=== PATIENT | male | born 1985 | race Caucasian/White ===

== ENCOUNTER 2019-10-03 06:48 | Emergency (ER) | payer BC ==
[2019-10-03] MEDS ORDERED: methylPREDNISolone Sodium Succinate 125 MG/2 ML SDV IM ONE (07:22)
--- NOTE | 2019-10-03 07:26 | EDM.PDOC ---
ED HPI GENERAL MEDICAL PROBLEM - General Chief Complaint: ENT Problem Stated Complaint: something in the back of the throat Time Seen by Provider: 10/03/19 07:20 Source of Information: Reports: Patient, Family History Limitations: Reports: No Limitations - History of Present Illness INITIAL COMMENTS - FREE TEXT/NARRATIVE: 34-year-old male woke up this morning with difficulty swallowing and a sensation of swelling in the back of his throat. No fevers or chills. He has been struggling with a cold for the past 7 to 10 days. No current cough or shortness of breath. No nausea or vomiting. Onset: Gradual Duration: Hour(s): (Over the last 12 hours) Location: Reports: Other (Throat) Associated Symptoms: Reports: Other (Difficulty swallowing and talking). Denies : Fever/Chills, Headaches, Shortness of Breath - Related Data Allergies Allergy/AdvReac Type Severity Reaction Status Date / Time No Known Allergies Allergy Verified 10/03/19 07:16 Home Meds: Home Meds NK [No Known Home Meds] 10/13/14 [History] Past Medical History - Past Health History Medical/Surgical History: Denies Medical/Surgical History Social & Family History - Tobacco Use Smoking Status *Q: Never Smoker - Caffeine Use Caffeine Use: Reports: Coffee, Soda, Tea - Recreational Drug Use Recreational Drug Use: No ED ROS ENT - Review of Systems Review Of Systems: See Below Constitutional: Denies: Fever, Chills HEENT: Reports: Rhinitis, Throat Pain, Throat Swelling, Other (Recently had laryngitis which has improved) Respiratory: Denies: Shortness of Breath GI/Abdominal: Reports: No Symptoms ED EXAM, ENT - Physical Exam Exam: See Below Exam Limited By: No Limitations General Appearance: Alert, No Apparent Distress (Looks uncomfortable but not distressed) Eye Exam: Bilateral Eye: Normal Inspection Mouth/Throat: Tonsillar Erythema, Uvular Edema. No: Tonsillar Swelling Head: Atraumatic Neck: Non-Tender Respiratory/Chest: Lungs Clear Course - Vital Signs Last Recorded V/S: Last Vital Signs Temp 97.3 F 10/03/19 07:12 Pulse 80 10/03/19 07:12 Resp 16 10/03/19 07:12 BP 147/77 H 10/03/19 07:12 Pulse Ox 96 10/03/19 07:12 - Orders/Labs/Meds Orders: Active Orders 24 hr Category Date Time Status CULTURE STREP A CONFIRMATION [RM] Routine Lab 10/03/19 07:26 Results STREP SCRN A RAPID W CULT CONF [RM] Routine Lab 10/03/19 07:26 Results Meds: Medications Discontinued Medications Generic Name Dose Route Start Last Admin Trade Name Veronica PRN Reason Stop Dose Admin Methylprednisolone Sodium Succinate 125 mg 10/03/19 07:22 12 07:49 Solu-Medrol IM 10/03/19 07:23 125 mg ONETIME ONE Administration - Re-Assessments/Exams Free Text/Narrative Re-Assessment/Exam: 10/03/19 07:25 Rapid strep was obtained. This patient appears to have isolated uvular edema likely from his ongoing viral upper respiratory infection. He was given 125 mg of Solu-Medrol and some ice chips to suck on. 10/03/19 07:53 Rapid strep was negative. Patient will be covered with a 5-day course of Zithromax to cover atypicals, and was advised to continue with cold foods and decrease talking for the next 24 to 48 hours. He can return anytime if worsening. Departure - Departure Time of Disposition: 08:02 Disposition: Home, Self-Care 01 Clinical Impression: Swollen uvula Pharyngitis Qualifiers: Pharyngitis/tonsillitis etiology: unspecified etiology Qualified Code(s): J02.9 - Acute pharyngitis, unspecified - Discharge Information Instructions: Pharyngitis, [id number] Referrals: PCP,None [Primary Care Provider] - Forms: ED Department Discharge Care Plan Goals: Take antibiotic as prescribed, continue with cold foods, and decrease talking for the next 24 to 48 hours. Return anytime if worsening such as difficulty breathing. - My Orders Last 24 Hours: My Active Orders 10/03/19 07:26 CULTURE STREP A CONFIRMATION [RM] Routine STREP SCRN A RAPID W CULT CONF [RM] Routine - Assessment/Plan Last 24 Hours: My Active Orders 10/03/19 07:26 CULTURE STREP A CONFIRMATION [RM] Routine STREP SCRN A RAPID W CULT CONF [RM] Routine
== END 2019-10-03 08:02 | disposition home or self-care (01) ==
LOC: JP.ED 06:48
DX: J02.9 Acute pharyngitis, unspecified (principal)
CPT/HCPCS: 87081; 87880; 96372; 99284; J2930

== ENCOUNTER 2020-11-18 05:57 | Emergency (ER) | payer BC ==
[2020-11-18] MEDS ORDERED: methylPREDNISolone Sodium Succinate 125 MG/2 ML SDV IM ONE (06:33)
--- NOTE | 2020-11-18 06:39 | EDM.PDOC ---
ED HPI GENERAL MEDICAL PROBLEM - General Chief Complaint: ENT Problem Stated Complaint: SWOLLEN MOUTH Time Seen by Provider: 11/18/20 06:20 Source of Information: Reports: Patient History Limitations: Reports: No Limitations - History of Present Illness INITIAL COMMENTS - FREE TEXT/NARRATIVE: 35-year-old male woke up this morning with a swollen uvula, uncomfortable sensation in the back of his throat. This happened a year ago after having cold symptoms for 7 days, this time he feels fine. No other symptoms Onset: Unknown/Unsure (Woke up with swollen uvula, unsure when it started) - Related Data Allergies Allergy/AdvReac Type Severity Reaction Status Date / Time No Known Allergies Allergy Verified 11/18/20 06:14 Home Meds: Home Meds NK [No Known Home Meds] 10/13/14 [History] Past Medical History - Past Health History Medical/Surgical History: Denies Medical/Surgical History - Infectious Disease History Infectious Disease History: Reports: Chicken Pox Social & Family History - Tobacco Use Tobacco Use Status *Q: Never Tobacco User - Caffeine Use Caffeine Use: Reports: Coffee, Soda, Tea - Recreational Drug Use Recreational Drug Use: No ED ROS ENT - Review of Systems Review Of Systems: See Below Constitutional: Denies: Fever, Chills, Malaise HEENT: Denies: Throat Pain Respiratory: Denies: Shortness of Breath Cardiovascular: Denies: Chest Pain GI/Abdominal: Denies: Nausea, Vomiting Skin: Reports: No Symptoms Neurological: Denies: Headache ED EXAM, ENT - Physical Exam Exam: See Below Exam Limited By: No Limitations General Appearance: Alert, No Apparent Distress Mouth/Throat: Uvular Edema. No: Pharyngeal Erythema, Tonsillar Erythema Head: Atraumatic Neck: No: Lymphadenopathy (R), Lymphadenopathy (L) Respiratory/Chest: No Respiratory Distress Course - Vital Signs Last Recorded V/S: Last Vital Signs Temp 96.4 F L 11/18/20 06:16 Pulse 98 11/18/20 06:16 Resp 16 11/18/20 06:16 BP 126/81 11/18/20 06:16 Pulse Ox 96 11/18/20 06:16 - Orders/Labs/Meds Meds: Medications Discontinued Medications Generic Name Dose Route Start Last Admin Trade Name Freq PRN Reason Stop Dose Admin Methylprednisolone Sodium Succinate 125 mg 11/18/20 06:33 11/18/20 06:43 Solu-Medrol IM 11/18/20 06:34 125 mg ONETIME ONE Administration - Re-Assessments/Exams Free Text/Narrative Re-Assessment/Exam: 11/18/20 06:37 Patient was given 125 mg of IM Solu-Medrol which he had last time and it seemed very effective. Encouraged him to gargle with icy water, and he can return if worsening. Departure - Departure Time of Disposition: 06:55 Disposition: Home, Self-Care 01 Clinical Impression: Swollen uvula - Discharge Information Instructions: Uvulitis Referrals: PCP,None [Primary Care Provider] - Forms: ED Department Discharge Care Plan Goals: Cold icy liquids and decreased talking for the morning may be helpful. This should improve as the day goes on fairly rapidly, recheck at any time if worsening especially if you develop a fever or difficulty breathing. Sepsis Event Note (ED) - Evaluation Sepsis Screening Result: No Definite Risk - Focused Exam Vital Signs: Vital Signs Temp Pulse Resp BP Pulse Ox 11/18/20 06:16 96.4 F L 98 16 126/81 96
== END 2020-11-18 06:57 | disposition home or self-care (01) ==
LOC: JP.ED 05:57
DX: K13.79 Other lesions of oral mucosa (principal)
CPT/HCPCS: 96372; 99283; J2930

== ENCOUNTER 2021-03-26 04:20 | Emergency (ER) | payer BC ==
--- NOTE | 2021-03-26 04:47 | EDM.PDOC ---
ED HPI GENERAL MEDICAL PROBLEM - General Chief Complaint: ENT Problem Stated Complaint: MEDICAL Time Seen by Provider: 03/26/21 04:44 Source of Information: Reports: Patient History Limitations: Reports: No Limitations - History of Present Illness INITIAL COMMENTS - FREE TEXT/NARRATIVE: Patient presents after he woke up feeling like his uvula is swollen "the ball in back of my through". He has had this in the past on at least 2-3 occasions and last time was treated here with steroids approximate 4 months ago for similar symptomatology, with resolution. Patient does report he snores. He denies any runny nose, cough, shortness of breath, change in taste or smell, sore throat. No Covid exposures. No diarrhea. He is not vaccinated. He denies problems swallowing. He does report a history of GERD. Per patient denies any chest pain, neck pain, jaw pain, skin rash or other complaints. Presents with his and 2 children. 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 Patient denies any lip swelling he is not on CHRIS inhibitor's. Onset: Today - Related Data Allergies Allergy/AdvReac Type Severity Reaction Status Date / Time No Known Allergies Allergy Verified 03/26/21 04:29 Home Meds: Home Meds NK [No Known Home Meds] 10/13/14 [History] Past Medical History - Past Health History Medical/Surgical History: Denies Medical/Surgical History - Infectious Disease History Infectious Disease History: Reports: Chicken Pox Social & Family History - Tobacco Use Tobacco Use Status *Q: Never Tobacco User Second Hand Smoke Exposure: No - Caffeine Use Caffeine Use: Reports: Soda - Recreational Drug Use Recreational Drug Use: No ED ROS ENT - Review of Systems Review Of Systems: Comprehensive ROS is negative, except as noted in HPI. Constitutional: Reports: No Symptoms HEENT: Reports: Throat Swelling. Denies: Dental Pain, Ear Pain, Eye Discharge, Nose Pain, Rhinitis, Sinus Problem, Throat Pain Respiratory: Reports: No Symptoms Cardiovascular: Reports: No Symptoms Endocrine: Reports: No Symptoms GI/Abdominal: Reports: No Symptoms : Reports: No Symptoms Musculoskeletal: Reports: No Symptoms Skin: Reports: No Symptoms Neurological: Reports: No Symptoms Psychiatric: Reports: No Symptoms Hematologic/Lymphatic: Reports: No Symptoms Immunologic: Reports: No Symptoms ED EXAM, ENT - Physical Exam Exam: See Below Exam Limited By: No Limitations General Appearance: Alert, No Apparent Distress Ears: Normal External Exam Nose: Normal Inspection. No: Clear Rhinorrhea Mouth/Throat: Normal Gums, Normal Lips, Normal Teeth, Uvular Edema. No: Drooling, Dry Mucous Membrane, Hoarse Voice, Lip Swelling, Muffled Voice, Oral Ulcers, Peritonsillar Mass, Pharyngeal Erythema, Tongue Swelling, Tonsillar Erythema, Tonsillar Exudates, Tonsillar Swelling, Trismus, Uvular Deviation Neck: Normal Inspection, Supple, Full Range of Motion. No: Lymphadenopathy (R), Lymphadenopathy (L) Respiratory/Chest: No Respiratory Distress Cardiovascular: Normal Peripheral Pulses, Regular Rate, Rhythm GI/Abdominal: No Distention Extremities: Normal Inspection Neurological: Alert, Oriented, Normal Cognition, Normal Gait, No Motor/Sensory Deficits Psychiatric: Normal Affect Skin: Warm, No Rash Lymphatic: No Adenopathy Course - Vital Signs Text/Narrative:: Patient presents with isolated uvula swelling very tip of his uvula. He has no infectious symptomatology. he has been treated in the past with steroids for similar presentation. Most likely cause of this is is his nocturnal snoring. I discussed sleep study as an outpatient. Also consider possible GERD and/or infectious etiology. Patient would like discharge home and is stable. We will treat him with a dose of oral Decadron in the ED (8mg) and place him on Zantac 150 mg p.o. daily. Recommend follow up in the next 7 to 10 days for repeat assessment wit PMD. Discussed with the patient the potential causes of edema tous uvula. Patient has no signs of angioedema, or any life-threatening process. Patient is talkative with normal voice, polite and conversant. He does note after he drank water prior to my exam the uvula swelling decreased. He has mild swelling at the tip of his uvula uvula, which is midline. there is no trismus the remaining oral pharyngeal examination is normal. Last Recorded V/S: Last Vital Signs Temp 36.4 C 03/26/21 04:30 Pulse 88 03/26/21 04:30 Resp 16 03/26/21 04:30 BP 126/79 03/26/21 04:30 Pulse Ox 96 03/26/21 04:30 - Orders/Labs/Meds Meds: Medications Discontinued Medications Generic Name Dose Route Start Last Admin Trade Name Freq PRN Reason Stop Dose Admin Dexamethasone 8 mg 03/26/21 04:54 03/26/21 05:02 Dexamethasone 4 Mg/Ml Sdv PO 03/26/21 04:55 8 mg ONETIME ONE Administration Departure - Departure Time of Disposition: 05:12 (stable) Disposition: Home, Self-Care 01 Condition: Good Clinical Impression: Uvular swelling, Swollen uvula - Discharge Information *PRESCRIPTION DRUG MONITORING PROGRAM REVIEWED*: No *COPY OF PRESCRIPTION DRUG MONITORING REPORT IN PATIENT LUCI: No Instructions: Uvulitis Referrals: PCP,None [Primary Care Provider] - Forms: ED Department Discharge Additional Instructions: Please return if temperature greater 100.4, progressive swelling of your uvula, lip swelling, voice change, neck swelling. Consider sleep study as you note this happens when you snore. Your treated today with a dose of possible anti- inflammatory steroid to help with swelling and/or allergic reactions. I do not see evidence to suggest that you have a serious bacterial infection today. Reflux can also cause swelling of her uvula. Please start using zantac 150 mg p.o. daily. follow up with your MD to recheck in 7-10 days. Sepsis Event Note (ED) - Evaluation Sepsis Screening Result: No Definite Risk - Focused Exam Vital Signs: Vital Signs Temp Pulse Resp BP Pulse Ox 03/26/21 04:30 36.4 C 88 16 126/79 96
[2021-03-26] MEDS ORDERED: Dexamethasone 4 MG/ML SDV PO ONE (04:54)
== END 2021-03-26 05:13 | disposition home or self-care (01) ==
LOC: JP.ED 04:20
DX: R22.0 Localized swelling, mass and lump, head (principal)
CPT/HCPCS: 99283; J1100

== ENCOUNTER 2021-06-21 06:14 | Emergency (ER) | payer BC ==
[2021-06-21] MEDS ORDERED: Dexamethasone 4 MG/ML SDV PO ONE (06:38)
--- NOTE | 2021-06-21 06:43 | EDM.PDOC ---
ED HPI GENERAL MEDICAL PROBLEM - General Chief Complaint: ENT Problem Stated Complaint: SWOLLEN UVULA Time Seen by Provider: 06/21/21 06:30 Source of Information: Reports: Patient History Limitations: Reports: No Limitations - History of Present Illness INITIAL COMMENTS - FREE TEXT/NARRATIVE: 35-year-old male that comes in a couple of times a year over the past couple years with an isolated swollen uvula in the morning. He woke up again this morning unable to talk or swallow very well, he was worried that it was going to get worse so came in but it is already getting better. No shortness of breath, no systemic symptoms, no fever or chills, no nausea or vomiting. He has responded well to steroids in the past. It was recommended that he go talk to her primary provider about sleep study but he does not want to because he does not want to "sleep with a machine". Onset: Other (Symptoms started sometime in the night) Location: Reports: Other (Symptoms are isolated to the uvula) Associated Symptoms: Reports: No Other Symptoms - Related Data Allergies Allergy/AdvReac Type Severity Reaction Status Date / Time No Known Allergies Allergy Verified 06/21/21 06:29 Home Meds: Home Meds NK [No Known Home Meds] 10/13/14 [History] Past Medical History - Past Health History Medical/Surgical History: Denies Medical/Surgical History - Infectious Disease History Infectious Disease History: Reports: Chicken Pox Social & Family History - Tobacco Use Tobacco Use Status *Q: Never Tobacco User - Caffeine Use Caffeine Use: Reports: Coffee - Recreational Drug Use Recreational Drug Use: No ED ROS ENT - Review of Systems Review Of Systems: See Below Constitutional: Denies: Fever, Chills HEENT: Reports: Other (As in HPI) Respiratory: Reports: No Symptoms GI/Abdominal: Reports: No Symptoms Musculoskeletal: Reports: No Symptoms Skin: Reports: No Symptoms Neurological: Reports: No Symptoms Psychiatric: Reports: No Symptoms ED EXAM, ENT - Physical Exam Exam: See Below Exam Limited By: No Limitations General Appearance: Alert, No Apparent Distress Eye Exam: Bilateral Eye: Normal Inspection Mouth/Throat: Uvular Edema (Entire uvula is edematous but it is isolated) Head: Atraumatic Neck: No: Lymphadenopathy (R), Lymphadenopathy (L) Respiratory/Chest: No Respiratory Distress, Lungs Clear Cardiovascular: Regular Rate, Rhythm Neurological: Alert, Oriented Psychiatric: Normal Affect, Normal Mood Skin: Warm, Dry Course - Vital Signs Last Recorded V/S: Last Vital Signs Temp 97.5 F 06/21/21 06:29 Pulse 101 H 06/21/21 06:29 Resp 16 06/21/21 06:29 BP 132/78 06/21/21 06:29 Pulse Ox 96 06/21/21 06:29 - Orders/Labs/Meds Meds: Medications Discontinued Medications Generic Name Dose Route Start Last Admin Trade Name Veronica PRN Reason Stop Dose Admin Dexamethasone 8 mg 06/21/21 06:38 06/21/21 06:43 Dexamethasone 4 Mg/Ml Sdv PO 06/21/21 06:39 8 mg ONETIME ONE Administration - Re-Assessments/Exams Free Text/Narrative Re-Assessment/Exam: 06/21/21 06:41 Patient again was given 8 mg of oral Decadron. Encourage sucking on ice or sipping cold juice for the next hour and this should resolve. He can return if worsening. Departure - Departure Time of Disposition: 06:50 Disposition: Home, Self-Care 01 Clinical Impression: Uvular swelling - Discharge Information Instructions: Uvulitis Referrals: PCP,None [Primary Care Provider] - Forms: ED Department Discharge Care Plan Goals: Consider seeing a primary provider to discuss a sleep study or a steroid refill for any occurrence of the symptoms in the future. Return if worsening. Sepsis Event Note (ED) - Evaluation Sepsis Screening Result: No Definite Risk - Focused Exam Vital Signs: Vital Signs Temp Pulse Resp BP Pulse Ox 06/21/21 06:29 97.5 F 101 H 16 132/78 96 06/21/21 06:28 97.5 F 101 H 16 132/78 96
== END 2021-06-21 06:50 | disposition home or self-care (01) ==
LOC: JP.ED 06:14
DX: K13.79 Other lesions of oral mucosa (principal)
CPT/HCPCS: 99283; J1100

== ENCOUNTER 2021-06-26 01:52 | Emergency (ER) | payer BC ==
--- NOTE | 2021-06-26 02:42 | EDM.PDOC ---
ED HPI GENERAL MEDICAL PROBLEM - General Chief Complaint: Lower Extremity Injury/Pain Stated Complaint: INJURED LEFT HEEL Time Seen by Provider: 06/26/21 02:25 Source of Information: Reports: Patient, Old Records, RN History Limitations: Reports: No Limitations - History of Present Illness INITIAL COMMENTS - FREE TEXT/NARRATIVE: 35 yo male presents with L medial heel pain that has been getting worse for the past couple of days. He has been walking in it funny so now his calf is also tight. He was was taking Aleve with partial relief, but didn't take any last night and now it is worse. Denies any injury to the area. Has not been seen before [facility] for this. Onset: Gradual Duration: Day(s):, Getting Worse Location: Reports: Lower Extremity, Left Quality: Reports: Sharp (with weight bearing) Severity: Severe (with weight bearing) Improves with: Reports: Medication, Rest Worsens with: Reports: Movement (weight bearing) Context: Reports: Other (see HPI) Associated Symptoms: Reports: No Other Symptoms Treatments [employer] F[employer]ER: Reports: Other (see below) (none) heel Pain Score (Numeric/FACES): 1 - Related Data Allergies Allergy/AdvReac Type Severity Reaction Status Date / Time No Known Allergies Allergy Verified 06/21/21 06:29 Home Meds: Home Meds NK [No Known Home Meds] 10/13/14 [History] Past Medical History - Past Health History Medical/Surgical History: Denies Medical/Surgical History Respiratory History: Reports: None Gastrointestinal History: Reports: None Genitourinary History: Reports: None Musculoskeletal History: Reports: None Neurological History: Reports: None Psychiatric History: Reports: None Endocrine/Metabolic History: Reports: None Hematologic History: Reports: None Immunologic History: Reports: None Oncologic (Cancer) History: Reports: None Dermatologic History: Reports: None - Infectious Disease History Infectious Disease History: Reports: Chicken Pox - Past Surgical History Head Surgeries/Procedures: Reports: None Social & Family History - Family History Family Medical History: No Pertinent Family History - Tobacco Use Tobacco Use Status *Q: Never Tobacco User - Caffeine Use Caffeine Use: Reports: Soda - Recreational Drug Use Recreational Drug Use: No Review of Systems - Review of Systems Review Of Systems: See Below Constitutional: Reports: No Symptoms Musculoskeletal: Reports: Foot Pain (L medial heel) Skin: Reports: No Symptoms Neurological: Reports: No Symptoms ED EXAM, GENERAL - Physical Exam Exam: See Below Exam Limited By: No Limitations General Appearance: Alert, WD/WN, No Apparent Distress Extremities: Normal Inspection, Normal Range of Motion, No Pedal Edema, Other (tender to the L heel, medial aspect. ). No: Non-Tender, Pedal Edema, Limited Range of Motion, Increased Warmth, Redness Neurological: Alert, Oriented, CN II-XII Intact, Normal Cognition, No Motor/Sensory Deficits Psychiatric: Normal Affect, Normal Mood Skin Exam: Warm, Dry, Intact, Normal Color, No Rash. No: Ecchymosis, Erythema, Increased Warmth, Petechiae, Rash, Wound/Incision Course - Vital Signs Last Recorded V/S: Last Vital Signs Temp 36.6 C 06/26/21 02:03 Pulse 80 06/26/21 02:03 Resp 16 06/26/21 02:03 BP 141/84 H 06/26/21 02:03 Pulse Ox 99 06/26/21 02:03 Departure - Departure Time of Disposition: 02:45 Disposition: Home, Self-Care 01 Condition: Good Clinical Impression: Pain of left heel - Discharge Information *PRESCRIPTION DRUG MONITORING PROGRAM REVIEWED*: Not Applicable *COPY OF PRESCRIPTION DRUG MONITORING REPORT IN PATIENT LUCI: Not Applicable Instructions: Crutch Use, Adult, [id number] Referrals: PCP,None [Primary Care Provider] - Additional Instructions: Take 2 Aleve every 12 hrs with food. Add acetaminophen up to 1000 mg every 6 hrs for added relief. Crutch walking and no weight bearing. Follow up with podiatry, someone will call you with an appt. Sepsis Event Note (ED) - Evaluation Sepsis Screening Result: No Definite Risk - Focused Exam Vital Signs: Vital Signs Temp Pulse Resp BP Pulse Ox 06/26/21 02:03 36.6 C 80 16 141/84 H 99
== END 2021-06-26 02:55 | disposition home or self-care (01) ==
LOC: JP.ED 01:52
DX: M79.672 Pain in left foot (principal)
CPT/HCPCS: 99283

== ENCOUNTER 2021-08-09 20:27 | Emergency (ER) | payer BC ==
[2021-08-09] MEDS ORDERED: Ketorolac 30 MG/ML SDV IM ONE (22:56)
[2021-08-09] MEDS ORDERED: Methocarbamol 500 MG Tab PO ONE (22:56)
--- NOTE | 2021-08-09 23:58 | EDM.PDOC ---
ED HPI GENERAL MEDICAL PROBLEM - General Chief Complaint: Back Pain or Injury Stated Complaint: LOWER BACK PAIN Time Seen by Provider: 08/09/21 22:53 Source of Information: Reports: Patient History Limitations: Reports: No Limitations - History of Present Illness INITIAL COMMENTS - FREE TEXT/NARRATIVE: Frank 6-year-old male presenting to the ED for evaluation of acute low back pain. The patient states he was unloading an I-beam from the back of his pickup truck when he felt a pop in his back followed by sudden pain. He does have a history of arthritis at L5-S1 but denies any history of significant disc disease. At this time he is unable to stand upright having his pelvis contact towards the left. He is unsure if he did something to his back or popped his hip out. He does have a history of a left hip dislocation previously. He denies any distal numbness or tingling, sciatica, loss of bowel or bladder control, or saddle anesthesia. Left Lower Back Pain Score (Numeric/FACES): 3 - Related Data Allergies Allergy/AdvReac Type Severity Reaction Status Date / Time No Known Allergies Allergy Verified 08/09/21 20:43 Home Meds: Home Meds methocarbamoL [Methocarbamol] 750 mg PO QID PRN #28 tablet 08/10/21 [Rx] Past Medical History - Past Health History Medical/Surgical History: Denies Medical/Surgical History HEENT History: Reports: Impaired Vision Respiratory History: Reports: None Gastrointestinal History: Reports: None Genitourinary History: Reports: None Musculoskeletal History: Reports: None Neurological History: Reports: None Psychiatric History: Reports: None Endocrine/Metabolic History: Reports: None Hematologic History: Reports: None Immunologic History: Reports: None Oncologic (Cancer) History: Reports: None Dermatologic History: Reports: None - Infectious Disease History Infectious Disease History: Reports: Chicken Pox - Past Surgical History Head Surgeries/Procedures: Reports: None HEENT Surgical History: Reports: Oral Surgery Social & Family History - Family History Family Medical History: No Pertinent Family History - Tobacco Use Tobacco Use Status *Q: Never Tobacco User Second Hand Smoke Exposure: Yes - Caffeine Use Caffeine Use: Reports: Soda - Recreational Drug Use Recreational Drug Use: No ED ROS GENERAL - Review of Systems Review Of Systems: See Below Constitutional: Reports: No Symptoms HEENT: Reports: No Symptoms Respiratory: Reports: No Symptoms Cardiovascular: Reports: No Symptoms Endocrine: Reports: No Symptoms GI/Abdominal: Reports: No Symptoms : Reports: No Symptoms Musculoskeletal: Reports: Back Pain Skin: Reports: No Symptoms Neurological: Reports: No Symptoms Psychiatric: Reports: Anxiety Hematologic/Lymphatic: Reports: No Symptoms Immunologic: Reports: No Symptoms ED EXAM,LOWER BACK PAIN/INJURY - Physical Exam Exam: See Below Exam Limited By: No Limitations General Appearance: Alert, Anxious, Moderate Distress Eye Exam: Bilateral Eye: EOMI, PERRL Head: Atraumatic, Normocephalic Respiratory/Chest: No Respiratory Distress, Lungs Clear, Normal Breath Sounds Cardiovascular: Normal Peripheral Pulses, Regular Rate, Rhythm, No Murmur Back Exam: Decreased Range of Motion, Muscle Spasm, Paraspinal Tenderness (Significant bilateral left greater than right paraspinal muscle spasm and tenderness), Vertebral Tenderness (Tenderness over L4 and L5 with palpation.) Extremities: Other (The pelvis is tipped towards the left. Patient can do a normal right leg left but left leg is limited.) Course - Vital Signs Last Recorded V/S: Last Vital Signs Temp 36.6 C 08/09/21 20:49 Pulse 98 08/09/21 20:49 Resp 18 08/09/21 20:49 BP 125/92 H 08/09/21 20:49 Pulse Ox 94 L 08/09/21 20:49 - Orders/Labs/Meds Orders: Active Orders 24 hr Category Date Time Status Lumbar Spine wo Cont [CT] Stat Exams 08/10/21 00:01 Taken Meds: Medications Discontinued Medications Generic Name Dose Route Start Last Admin Trade Name Freq PRN Reason Stop Dose Admin Ketorolac Tromethamine 30 mg 08/09/21 22:56 08/09/21 23:06 Ketorolac 30 Mg/Ml Sdv IM 08/09/21 22:57 30 mg ONETIME ONE Administration Ketorolac Tromethamine 10 mg 08/10/21 00:21 Ketorolac 10 Mg Tab PO 08/10/21 00:22 ONETIME ONE Methocarbamol 1,000 mg 08/09/21 22:56 08/09/21 23:06 Methocarbamol 500 Mg Tab PO 08/09/21 22:57 1,000 mg ONETIME ONE Administration - Radiology Interpretation Free Text/Narrative:: The CT of the lumbar spine without contrast. The patient has a broad-based bulge extending into the spinal canal at T12 with osteophytic formation consistent with a chronic disc herniation. The bilateral neural foramen appear to be patent. The patient has a similar finding at L4-L5. There is no evidence for acute disc herniation or rupture. There is no vacuum sign. There is no evidence for vertebral compression fracture. Final report is pending. - Re-Assessments/Exams Free Text/Narrative Re-Assessment/Exam: 08/10/21 01:15 the patient was given Toradol 30 mg IM and methocarbamol 1000 mg p.o. He has had significant improvement in his symptoms. I did review with him the findings on the CT of the lumbar spine. My plan is to continue therapy with Toradol 10 mg p.o. 4 times daily as needed dispensing 20 tablets in the [employer] med machine and methocarbamol 750 mg 4 times daily as needed for muscle spasm and pain dispensing 28 tablets in a prescription to fill in the morning. Indications to return to the ED were discussed and the patient was discharged in satisfactory condition. The patient plans to follow-up with local chiropractor for further care. Departure - Departure Time of Disposition: 01:17 Disposition: Home, Self-Care 01 Clinical Impression: Acute lumbar myofascial strain Qualifiers: Encounter type: initial encounter Qualified Code(s): S39.012A - Strain of muscle, fascia and tendon of lower back, initial encounter - Discharge Information Instructions: Lumbosacral Strain Referrals: PCP,None [Primary Care Provider] - Forms: ED Department Discharge Care Plan Goals: We will treat your acute lumbosacral myofascial strain with the combination of Toradol 10 mg 4 times a day as needed for pain and methocarbamol 750 mg 4 times a day as needed for muscle spasm. Ice may also help reduce spasm in the back so I recommend icing for 15 to 20 minutes every couple hours you're awake over the next 2 days. Sepsis Event Note (ED) - Evaluation Sepsis Screening Result: No Definite Risk - Focused Exam Vital Signs: Vital Signs Temp Pulse Resp BP Pulse Ox 08/09/21 20:49 36.6 C 98 18 125/92 H 94 L - Problem List & Annotations (1) Acute lumbar myofascial strain SNOMED Code(s): 681892518, 44932874, 883976584 Code(s): S39.012A - STRAIN OF MUSCLE, FASCIA AND TENDON OF LOWER BACK, INIT Status: Acute Priority: Medium Current Visit: Yes Qualifiers: Encounter type: initial encounter Qualified Code(s): S39.012A - Strain of muscle, fascia and tendon of lower back, initial encounter - Problem List Review Problem List Initiated/Reviewed/Updated: Yes - My Orders Last 24 Hours: My Active Orders 08/10/21 00:01 Lumbar Spine wo Cont [CT] Stat - Assessment/Plan Last 24 Hours: My Active Orders 08/10/21 00:01 Lumbar Spine wo Cont [CT] Stat
[2021-08-10] MEDS ORDERED: Ketorolac 10 MG Tab PO ONE (00:21)
--- NOTE | 2021-08-10 01:31 | CRLCT ---
For Patients: As a result of the Century Cures Act, medical imaging exams and procedure reports are released immediately into your electronic medical record. You may view this report before your referring provider. If you have questions, please contact your health care provider. INDICATION: Low back pain after lifting I-beam. CT LUMBAR SPINE WITHOUT CONTRAST TECHNIQUE: Multidetector axial CT imaging was performed through the lumbar spine, without contrast. Sagittal and coronal reconstructions were generated. COMPARISON: 03/05/2011 CT lumbar spine. FINDINGS: No acute fractures are identified. Osseous alignment is within normal limits and no subluxation is seen. Paravertebral soft tissues are unremarkable. A moderate-sized right paramedian chronic-appearing disc protrusion at T12-L1 appears mildly larger than before and shows greater calcification, mildly narrowing the right T12-L1 neural foramen. A small central disc protrusion at L5-S1 does not appear significantly changed from before. There is a new moderate to large central and left paramedian disc protrusion at L4-5 which produces mild spinal stenosis and likely impinges the left L5 nerve root. IMPRESSION: 1. No fracture identified. 2. New moderate to large central and left paramedian disc protrusion at L4-5 producing mild spinal stenosis and probable left L5 nerve root impingement. 3. Moderate-sized right paramedian disc protrusion at T12-L1 is mildly larger than before, mildly narrowing the right T12-L1 neural foramen. 4. No significant change in small central disc protrusion at L5-S1. YONIS NORTON MD [facility] Dictated by Jorje Norton MD @ 08/10/2021 1:28:22 AM Please note that all CT scans at this facility use dose modulation, iterative reconstruction, and/or weight-based dosing when appropriate to reduce radiation dose to as low as reasonably achievable. Dictated by: Jorje Norton MD @ 08/10/2021 01:28:35 (Electronically Signed)
== END 2021-08-10 01:41 | disposition home or self-care (01) ==
LOC: JP.ED 20:27
DX: S39.012A Strain of muscle, fascia and tendon of lower back, initial encounter (principal); Z77.22 Contact with and (suspected) exposure to environmental tobacco smoke (acute) (chronic); X50.0XXA Overexertion from strenuous movement or load, initial encounter
CPT/HCPCS: 72131; 96372; 99283; A9270; J1885

== ENCOUNTER 2025-05-31 06:15 | Day surgery (SDC) | payer BC, MEDICAID ==
[2025-05-31] MEDS: Lactated Ringers 1,000 ML IV SCH (07:04)
[2025-05-31] MEDS ORDERED: Propofol 200 MG/20 ML SDV ONE (07:39)
[2025-05-31] MEDS ORDERED: fentaNYL 100 MCG/2 ML SDV ONE (07:39)
[2025-05-31] MEDS ORDERED: Midazolam 1 MG/ML 2 ML SDV ONE (07:40)
== END 2025-05-31 09:25 | disposition home or self-care (01) ==
LOC: JP.SDS 06:15
PROVIDERS: ATTEND Surgery
DX: K20.0 Eosinophilic esophagitis (principal); K29.80 Duodenitis without bleeding; K22.89 Other specified disease of esophagus
CPT/HCPCS: 00731-QZ; 88305; J2250; J2704; J3010; J7120